=== PATIENT | male | born 1975 ===

== ENCOUNTER 2021-04-22 23:24 | Emergency (ER) | payer OTHER ==
[2021-04-22] MEDS ORDERED: Oxymetazoline HCl 0.05% (30 ML BOT) ONE (23:39)
[2021-04-23] MEDS ORDERED: Bacitracin 1 PK ONE (00:13)
== END 2021-04-23 00:18 | disposition still patient (30) ==
LOC: NAV ERS 23:24
DX: S01.21XA Laceration without foreign body of nose, initial encounter (principal); I10 Essential (primary) hypertension; H66.93 Otitis media, unspecified, bilateral; H72.93 Unspecified perforation of tympanic membrane, bilateral; Y04.0XXA Assault by unarmed brawl or fight, initial encounter
CPT/HCPCS: 99283